=== PATIENT | female | born 1950 | race Two or more races ===

== ENCOUNTER 2024-01-17 04:56 | Emergency (ER) | payer MEDICARE, MEDICAID, SELFPAY ==
[2024-01-17 05:04] VITALS: BP 126/75; PULSE 85; RESP 19; TEMP 37.3; O2SAT 96; BMI 33.4
--- NOTE | 2024-01-17 05:10 | XR_ITS ---
Examination: PA lateral chest 2 views Technique: Upright PA lateral chest 2 views Exam date and time: January 17, 2024 0528 hrs. Indications: Onset chest pain today Comparison: February 16, 2014 Findings: Obscuration of detail of the posterior portion right hemidiaphragm on the lateral view consistent with pneumonia No significant cardiac enlargement Mild vascular congestion Mild kyphosis dorsal spine Impression: Early pneumonia posterior basal segment left lower lobe
--- NOTE | 2024-01-17 05:11 | PD.EDRME ---
Rapid Medical Screening Exam E Arrival date/time: 01/17/24 04:56 73-year-old female with past medical history of high blood pressure presents emergency department complaining of cough and pain to right upper back since this past Monday. Chief Complaint: General Adult/Misc Complain Vital signs: Vital Signs Temperature 99.1 F 01/17/24 05:04 Pulse Rate 85 01/17/24 05:04 Respiratory Rate 19 01/17/24 05:04 Blood Pressure 126/75 01/17/24 05:04 Pulse Oximetry (%) 96 01/17/24 05:04 Oxygen Delivery Method Room Air 01/17/24 05:04 Vital signs reviewed by provider: Yes
[2024-01-17 05:43] LABS: Collection Type, Urine Clean Catch
[2024-01-17 05:56] LABS: Bacteria,Urine 4+; Bilirubin,Urine 1+ (Negative); Blood,Urine 1+ (Negative); Budding Yeast,Urine Present; Color,Urine Drk-Yellow (Lt Yel-Yel); Glucose, Urine Negative (Negative); Ketones,Urine Trace (Negative); Leukocyte Esterase,Urine Positive (Negative); Nitrite,Urine Negative (Negative); Protein,Urine 2+ (Neg - Trace); RBC,Urine 28 /hpf (0-3); Squamous Epithelial Cell,Urine 6 /hpf (0-5); Urobilinogen,Urine 12 mg/dL (0.0-1.0); WBC,Urine 834 /hpf (0-5)
[2024-01-17 05:59] LABS: Basophils # (Auto) 0.1 Thou/mm3 (0.0-0.2); Basophils % (Auto) 0 % (0-2.5); Eosinophils # (Auto) 0.1 Thou/mm3 (0.0-0.5); Eosinophils % (Auto) 1 % (0-10); Hemoglobin 15.2 g/dL (12.0-16.0); Immature Granulocytes % (Auto) 1 % (0-0); Immature Granulocytes Auto 0.11 Thou/mm3 (0.00-0.00); Lymphocytes % (Auto) 17 % (10-50); Mean Corpuscular Hemoglobin 31.1 pg (25.0-35.0); Mean Corpuscular Volume 94 fL (80-100); Monocytes # (Auto) 1.9 Thou/mm3 (0.0-0.8); Monocytes % (Auto) 11 % (0-12); Neutrophils # (Auto) 12.7 Thou/mm3 (1.8-7.7); Neutrophils % (Auto) 71 % (37-80); Nucleated Red Blood Cell % 0 /100 WBC (0); Platelet Count 224 Thou/mm3 (140-440); RDW Standard Deviation 43.7 fL (36.4-46.3); Red Blood Count 4.88 Miln/mm3 (4.00-5.20); White Blood Count 17.9 Thou/mm3 (3.6-11.0)
[2024-01-17 06:07] LABS: Clarity,Urine Turbid (Clear/Hazy); Culture Indicated,Urine Yes
[2024-01-17 06:09] LABS: Alanine Aminotransferase 18 U/L (10-49); Albumin, Serum 4.8 gm/dL (3.4-4.8); Albumin/Globulin Ratio 1.2 (1.2-2.2); Alkaline Phosphatase 98 U/L (46-116); Anion Gap 8 (7-16); Aspartate Amino Transferase 22 U/L (0-34); BUN/Creatinine Ratio 12 Ratio (12-20); Bilirubin,Total 1.1 mg/dL (0.3-1.2); Blood Urea Nitrogen 13 mg/dL (9-23); Calcium 9.7 mg/dL (8.3-10.6); Calcium (Corrected) 9.7 mg/dL (8.5-10.1); Carbon Dioxide 23.5 mMol/L (20.0-31.0); Chloride 103 mMol/L (98-107); Creatinine (Component) 1.1 mg/dL (0.6-1.3); Estimated Creatinine Clearance 37.9 mL/min (>60); Glucose 163 mg/dL (74-106); Osmolality,Calculated 272 (275-295); Potassium 3.5 mMol/L (3.4-5.1); Sodium 134 mMol/L (136-145); Total Protein 8.8 gm/dL (5.7-8.2); Troponin I < 0.020 ng/mL (0.0-0.045); eGFR 53 See Note
--- NOTE | 2024-01-17 06:31 | PD.EDURI ---
Upper Respiratory Inf. RME/HPI General Chief Complaint: General Adult/Misc Complain Stated Complaint: Right flank pain X 3day Arrival date/time: 01/17/24 04:56 RME / HPI RME / HPI Narrative: 01/17/24 04:56 73-year-old female with past medical history of high blood pressure presents emergency department complaining of cough and pain to right upper back since this past Monday. DR. GRANT MAIN ED EVALUATION 73 year old female with history of hypertension, hypothyroidism, and seizures presents to the ED for complaint of cough, chest pain, and back pain beginning 3 days ago. Chest pain described as aching in sensation, located most to the right side of chest, rating as mild. Back pain described as aching in sensation that is located most to the right upper back and right flank area, rating as mild. Reportedly consulted with her PCP and was prescribed Promethazine which she has taken with little to no relief in cough. Denies fevers, chills, sweats, abdominal pain, n/v/d, or urinary symptoms. Related Data Home Medications ?Medication ?Instructions ?Recorded ?Confirmed Phenytoin Sodium Extended * 2 cap PO BID 3 days ##0 06/12/07 (DILANTIN *) atenolol 25 mg tablet 50 mg PO DAILY ##0 06/12/07 omeprazole 40 mg capsule,delayed 40 mg PO QDAY ##0 01/16/14 release (Prilosec) pravastatin 40 mg tablet 40 mg PO HS #0 tabs 01/16/14 (Pravachol) Losartan Potassium * (COZAAR *) 50 mg PO QDAY #0 tabs 06/23/14 beclomethasone dipropionate 80 1 puff inhalation BID #0 puffs 06/23/14 mcg/actuation aerosol inhaler (Qvar) Previous Rx's ?Medication ?Instructions ?Recorded levofloxacin 500 mg tablet 500 mg PO QDAY 7 days #7 tabs 01/17/24 Allergies Allergy/AdvReac Type Severity Reaction Status Date / Time iodine Allergy Severe RASH, Verified 01/17/24 05:00 BURNING, SWELLING codeine AdvReac Intermediate NAUSEA, Verified 01/17/24 05:00 VOMITING, HEAD PAIN Contrast Media Allergy Severe BURNING, Uncoded 01/17/24 05:00 RASH, SWELLING Review of Systems Review of Systems Narrative Review of Systems: GEN: No fever, no chills, no weight loss EYES: No discharge, no visual changes, no pain HEENT: No ear pain, no congestion, no sore throat PULM: No shortness of breath, +cough CV: +chest pain, no dyspnea on exertion, no palpitations GI: No nausea, no vomiting, no diarrhea, no pain, no constipation : No frequency, no urgency and no dysuria MUSC/SKEL No joint pain, + back pain SKIN: No rash PSYCH: No hallucinations, no depression HEME/LYMPH: No easy bleeding or bruising tendencies NEURO: No weakness, no headache Past Medical History Social History SMOKING STATUS: Never smoker ED Exam Narrative Physical exam: GENERAL APPEARANCE: Well hydrated, well nourished, in no acute distress. VITALS: All vitals were reviewed and the pulse ox is 96% on room air which is normal according to my interpretation. HEENT: Normocephalic, atramatic, EOMI, EACs are patent. There is no bulge or retraction. Throat without erythema or exudate. Moist oromucosa. No jaundice NECK: Supple, no JVD or bruits. CARDIOVASCULAR: Heart regular without S3-S4 or murmur. No rubs or gallops. LUNGS/CHEST: Crackles bilaterally. No rales, rhonchi, or wheezing. ABDOMEN: Soft, nontender, with normal bowel sounds. No pulsatile masses. No rebound, rigidity, or guarding. No incarcerated hernia. Normal inspection and palpation. EXTREMITIES: Normal inspection and palpation. No edema, clubbing, or cyanosis. Intact CSM SKIN: Warm and dry without rashes. Normal inspection. MUSCULOSKELETAL: Normal inspection. No gross deformity, full ROM all extremities NEURO: Alert and oriented x3. Cranial nerves II through XII grossly intact. There are no other motor or sensory deficits noted. PSYCHIATRIC: Normal mood and affect. No psychosis. Course Quality Measures none Orders Category Date Time Status Bedside COVID-19 Antigen Test NOW Care 01/17/24 05:10 Active Bedside Influenza A&B Antigen Test NOW Care 01/17/24 05:10 Completed EKG (ED ONLY) *Do not use* NOW Care 01/17/24 05:10 Completed EKG (ED Only) Stat Exams 01/17/24 05:10 Ordered XR chest 2V Stat Exams 01/17/24 05:10 Taken CBC Stat Lab 01/17/24 05:41 Completed Comprehensive Metabolic Panel Stat Lab 01/17/24 05:41 Completed Troponin I Stat Lab 01/17/24 05:41 Completed Urinalysis, C/S if Indicated Stat Lab 01/17/24 05:37 Completed Urine Culture Stat Lab 01/17/24 05:37 Received Vital Signs Vital signs: Vital Signs Temperature 99.1 F 01/17/24 05:04 Pulse Rate 85 01/17/24 05:04 Respiratory Rate 19 01/17/24 05:04 Blood Pressure 126/75 01/17/24 05:04 Pulse Oximetry (%) 96 01/17/24 05:04 Oxygen Delivery Method Room Air 01/17/24 05:04 Pulse ox is 96% on room air which is adequate. Upper Respiratory Infection MDM Narrative MDM Narrative:: Sol Neves am scribing for and in the presence of Dr. Grant. WBC count is 18,000. CMP is negative. UA is positive for UTI. Troponin is negative. Chest x-ray interpreted by me: Left lower lobe infiltrate. Heart normal. Mediastinum normal. Normal bones. Twelve-lead EKG that was done to 5:12 AM and interpreted by me as follow. Normal sinus rhythm. Heart rate of 95. Normal axis. No ST elevation or depression. No PVC. No STEMI. Regular rate and rhythm. Patient has no surgical abdomen. She has no tenderness rebound or guarding. And there is no flank tenderness either. Patient data External records reviewed:: None (NO previous ED records for review ) Clinical information provided by:: patient and spouse (- adds to hpi) Social determinants that could affect healthcare access:: none Patient has the following chronic illnesses:: hypertension, hypothyroidism, and seizures How is presenting disease/condition affected by chronic disease/condition?: uneffected by Evaluation data The following diagnostics were reviewed and interpreted by me:: lab results, radiology exam(s) and EKG tracing(s) Lab and/or radiology exams considered but not ordered:: None Interpretation Summary: As noted above Medications / Prescriptions Medications or Prescriptions considered but not ordered:: None Medication administrations:: None Consultations Consultation(s) initiated? (list below): No Diagnosis Upper Respiratory Differential Diagnosis: upper respiratory infection, viral infection, bronchitis and other (Pneumonia ) Most likely diagnosis given after review of the tests above:: Pneumonia UTI Admission Indicated Admission indicated?: not indicated Admission Request Was there a request for admission?: No Disposition Plan Disposition Plan: Discharge Discharge Attestation Discharge Attestation: The patient and all family members were given an opportunity to ask questions and understood the discharge instructions. Discharge instructions specifically effects, indications for sooner follow up or return to the emergency department, and the expected course of current diagnosis. Patient condition: Stable Discharge Plan Plan Patient Disposition: HOME (Self Care) Disposition Comment: Stable for [place] home Prescriptions/Referrals Prescriptions/Med Rec: New levofloxacin 500 mg tablet 500 mg PO QDAY 7 Days Qty: 7 0RF No Action atenolol 25 MG tablet 50 mg PO DAILY Qty: 0 Phenytoin Sodium Extended * (DILANTIN *) 100 MG capsule 2 cap PO BID 3 Days Qty: 0 Patient Comments: FOR SEIZURE CONTROL pravastatin [Pravachol] 40 MG tablet 40 mg PO HS Qty: 0 omeprazole [Prilosec] 40 MG capsule,delayed release(DR/EC) 40 mg PO QDAY Qty: 0 Patient Comments: TO SUPPRESS GASTRIC SECRETIONS beclomethasone dipropionate [Qvar] 7.3 GM aerosol 1 puff Inhalation BID Qty: 0 Losartan Potassium * (COZAAR *) 50 MG tablet 50 mg PO QDAY Qty: 0 Referrals: Breana Cates [Primary Care Provider] - In 1 week Problem List Clinical Impression: Pneumonia, Urinary tract infection Patient/Caregiver Discharge Instructions Education Materials: Urinary Tract Infections in Women, ED Pneumonia (Adult) Additional Instructions: Antibiotic for pneumonia and UTI. See your doctor for recheck and further care in 3 days. Return to the nearest emergency department if any problem especially high fever or if condition worsens. Print Language: Uzbek Stand Alone Forms: Eva Award Info., Patient Portal Info Letter
[2024-01-17 07:13] VITALS: BP 125/67; PULSE 87; RESP 18; TEMP 37.1; O2SAT 99
== END 2024-01-17 07:13 | disposition home or self-care (01) ==
PROVIDERS: Emergency Provider Emergency Medicine; PCP Physician Assistant
DX: J18.9 Pneumonia, unspecified organism (principal); N39.0 Urinary tract infection, site not specified; I10 Essential (primary) hypertension
CPT/HCPCS: 36415; 71046; 80053; 81001; 84484; 85025; 87077; 87086; 87186; 87400; 87811; 93005; 99283

== ENCOUNTER → 2024-01-29 | Outpatient (CLI) | payer MEDICARE, MEDICAID, SELFPAY ==
[2024-01-29 11:18] LABS: Basophils % (Auto) 0 % (0-2.5); Eosinophils # (Auto) 0.1 Thou/mm3 (0.0-0.5); Eosinophils % (Auto) 2 % (0-10); Hematocrit 40.8 % (36.0-46.0); Hemoglobin 13.6 g/dL (12.0-16.0); Immature Granulocytes % (Auto) 1 % (0-0); Immature Granulocytes Auto 0.05 Thou/mm3 (0.00-0.00); Lymphocytes # (Auto) 2.7 Thou/mm3 (1.0-4.8); Lymphocytes % (Auto) 31 % (10-50); Mean Corpuscular HGB Conc 33.3 g/dl (31.0-37.0); Mean Corpuscular Hemoglobin 30.2 pg (25.0-35.0); Mean Corpuscular Volume 91 fL (80-100); Monocytes # (Auto) 0.6 Thou/mm3 (0.0-0.8); Monocytes % (Auto) 7 % (0-12); Neutrophils # (Auto) 5.1 Thou/mm3 (1.8-7.7); Neutrophils % (Auto) 59 % (37-80); Nucleated Red Blood Cell % 0 /100 WBC (0); Platelet Count 421 Thou/mm3 (140-440); RDW Standard Deviation 41.2 fL (36.4-46.3); White Blood Count 8.6 Thou/mm3 (3.6-11.0)
[2024-01-29 11:38] LABS: Alanine Aminotransferase 41 U/L (10-49); Albumin, Serum 4.2 gm/dL (3.4-4.8); Albumin/Globulin Ratio 1.1 (1.2-2.2); Alkaline Phosphatase 118 U/L (46-116); Anion Gap 8 (7-16); Aspartate Amino Transferase 40 U/L (0-34); BUN/Creatinine Ratio 11 Ratio (12-20); Bilirubin,Total 0.6 mg/dL (0.3-1.2); Blood Urea Nitrogen 9 mg/dL (9-23); Calcium 9.5 mg/dL (8.3-10.6); Calcium (Corrected) 9.5 mg/dL (8.5-10.1); Chloride 106 mMol/L (98-107); Creatinine (Component) 0.8 mg/dL (0.6-1.3); Globulin 3.8 gm/dL (2.3-3.5); Glucose 120 mg/dL (74-106); Osmolality,Calculated 275 (275-295); Phenytoin (Dilantin) 4.7 mcg/mL; Potassium 3.7 mMol/L (3.4-5.1); Sodium 138 mMol/L (136-145); eGFR > 60 See Note
[2024-01-29 11:47] LABS: Glucose Estimated Average 120 mg/dL (80-131); Hemoglobin A1C 5.8 % Hgb (4.8-6.0)
== END | disposition home or self-care (01) ==
LOC: COPL 10:40
PROVIDERS: PCP Physician Assistant; Referring Provider Psychiatry & Neurology Neurology; Visit Provider Psychiatry & Neurology Neurology
DX: E78.5 Hyperlipidemia, unspecified (principal); I10 Essential (primary) hypertension
CPT/HCPCS: 36415; 80053; 80185; 83036; 84443; 85025

== ENCOUNTER 2024-02-04 15:22 | Emergency (ER) | payer MEDICARE, MEDICAID, SELFPAY ==
[2024-02-04 15:23] VITALS: BMI 38.3
[2024-02-04 15:40] VITALS: BP 153/63; PULSE 79; RESP 17; TEMP 36.8; O2SAT 95
--- NOTE | 2024-02-04 15:45 | XR_ITS ---
Examination: CT cervical spine without contrast 2-D sagittal reconstructions 2-D coronal reconstructions 3-D reconstructions. Exam date and time:February 04, 2024 1551 hrs. Indications: Patient fell 3 days ago with injury neck, neck pain CTDI:vol (mGy) 8.92 DLP: (mGycm) 181 Technique: Multiple 2 mm axial sections of the cervical spine have been obtained. The coronal and sagittal reconstructions have been obtained. 3-D reconstructions have been obtained. Low dose protocols were performed. One or more of the following dose reduction techniques were used; automated exposure control, adjustment of the mA and/or KV according to patient size, use of iterative reconstruction technique. Findings: Axial sections demonstrate intact base of the skull. C1 exhibit satisfactory relationship to the odontoid. No acute cervical vertebral body fracture seen. Alignment posterior spinous processes satisfactory. Impression: No acute cervical fracture.
--- NOTE | 2024-02-04 15:45 | XR_ITS ---
Examination: CT brain head without contrast. 2-D sagittal coronal reconstructions Date and time of exam:February 04, 2024 1551 hrs. Indications: Patient fell 3 days ago with injury to the head, head pain and neck pain CTDI: vol (mGy):51.5 DLP: (mGycm):1063 Technique: Multiple CT axial sections of the brain have been obtained, 5 mm slice thickness. Contrast has not been administered. 2-D sagittal, coronal reconstructions have been obtained Low dose protocols were performed. One or more of the following dose reduction techniques were used; automated exposure control, adjustment of the mA and/or KV according to patient size, use of iterative reconstruction technique. Findings: No significant ventricular enlargement. Intra-axial or extra-axial hemorrhage density is not seen. No mass effect or midline shift Basal cisterns are not remarkable. Fourth ventricle is midline. Cranial vault intact. Multiple cerebral calcifications Impression: Negative for acute hemorrhage, mass effect or midline shift
--- NOTE | 2024-02-04 15:46 | PD.EDRME ---
Rapid Medical Screening Exam RME Arrival date/time: 02/04/24 15:22 73-year-old female presented to the emergency department complaints of neck pain status post fall 4 days ago. I have greeted and performed a focused initial assessment of this patient. Initial appropriate labs ordered at this time. A comprehensive ED assessment and evaluation of the patient and analysis of all test and completion of medical decision making process will be conducted by additional ED provider. Chief Complaint: Neck Pain/Injury Time Seen by Provider: 02/04/24 15:45 Vital signs: Vital Signs Temperature 98.3 F 02/04/24 15:40 Pulse Rate 79 02/04/24 15:40 Respiratory Rate 17 02/04/24 15:40 Blood Pressure 153/63 H 02/04/24 15:40 Pulse Oximetry (%) 95 02/04/24 15:40 Oxygen Delivery Method Room Air 02/04/24 15:40
[2024-02-04] MEDS: IBUPROFEN TAB 600 MG TABLET PO (16:29)
[2024-02-04] MEDS: CYCLObenzaPRINE 5 MG TABLET PO (16:29)
--- NOTE | 2024-02-04 16:55 | PRELIM_ITS ---
CT scan of the cervical spine without intravenous contrast (axial sections with sagittal and coronal reformats) February 04, 2024 1551 hours Clinical History: fall 3 days ago, neck pain No prior study i s available for comparison. Findings:There is no fracture or traumatic subluxation. Mild degenerative changes are noted in the form of multilevel marginal osteophytes, decreased disc spaces and facet ar thropathy, most marked at the C5-C6 and C6-C7 levels causing mild spinal canal narrowing and neural f oraminal narrowing. The prevertebral soft tissues are unremarkable.There is mild scarring at the lung apices bilaterally.Impression:No evidence of fracture or traumatic subluxation.Degenerative changes are described above. Report Electronically Signed By: Anayeli Velez 02/04/2024 4:55:05 PM [EST]
--- NOTE | 2024-02-04 17:07 | PRELIM_ITS ---
CT scan of the head without intravenous contrast (axial sections with sagittal and coronal reformats) February 04, 2024 1551 hoursClinical History: fall 3 days ago, neck painNo prior study is available for comparison. Findings:There is no evidence of intracranial hemorrhage, mass effect or midline shif t. There are periventricular white matter hypodensities, compatible with chronic small vessel ischemi a. There is mild volume loss. Basal ganglia calcifications are present bilaterally. The calvarium is intact. The mastoid air cells and the visualized paranasal sinuses are clear.There are focal calcifi cations in the bilateral convexity.Impression:No evidence of intracranial hemorrhage, midline shift o r calvarial fracture. Periventricular chronic small vessel ischemia and volume loss.Focal calcificati ons in the bilateral convexity, likely representing old calcified granulomas. Report Electronically S igned By: Anayeli Velez 02/04/2024 5:07:23 PM [EST]
--- NOTE | 2024-02-04 19:00 | EDNOTE_ITS ---
<Statement entered by Jazmin Mercado MD - 02/05/24 22:06> As co-signing physician, I was present and available for consult prn. I concur with the plan and care as documented by the midlevel provider. ED Neck Injury Pain RME/HPI General Chief Complaint: Neck Pain/Injury Stated Complaint: LEFT NECK PAIN X2WK Time Seen by Provider: 02/04/24 15:45 Source: patient Arrival date/time: 02/04/24 15:22 73-year-old female with past medical history of high blood pressure presents emergency department complaining of neck pain that radiates down to both shoulders after suffering a fall 4 days ago with no LOC. Patient denies any fever, chills, sore throat, ear pain, dizziness, cough, shortness of breath, or any other associated symptom. Mode of arrival: ambulatory Limitations: no limitations RME / HPI RME / HPI Narrative: 02/04/24 15:22 73-year-old female presented to the emergency department complaints of neck pain status post fall 4 days ago. I have greeted and performed a focused initial assessment of this patient. Initial appropriate labs ordered at this time. A comprehensive ED assessment and evaluation of the patient and analysis of all test and completion of medical decision making process will be conducted by additional ED provider. Related Data Home Medications ?Medication ?Instructions ?Recorded ?Confirmed Phenytoin Sodium Extended * 2 cap PO BID 3 days ##0 06/12/07 (DILANTIN *) atenolol 25 mg tablet 50 mg PO DAILY ##0 06/12/07 omeprazole 40 mg capsule,delayed 40 mg PO QDAY ##0 01/16/14 release (Prilosec) pravastatin 40 mg tablet 40 mg PO HS #0 tabs 01/16/14 (Pravachol) Losartan Potassium * (COZAAR *) 50 mg PO QDAY #0 tabs 06/23/14 beclomethasone dipropionate 80 1 puff inhalation BID #0 puffs 06/23/14 mcg/actuation aerosol inhaler (Qvar) Previous Rx's ?Medication ?Instructions ?Recorded ibuprofen 600 mg tablet 600 mg PO Q8H PRN pain #20 tabs 02/04/24 Allergies Allergy/AdvReac Type Severity Reaction Status Date / Time iodine Allergy Severe RASH, Verified 02/04/24 15:26 BURNING, SWELLING codeine AdvReac Intermediate NAUSEA, Verified 02/04/24 15:26 VOMITING, HEAD PAIN Contrast Media Allergy Severe BURNING, Uncoded 02/04/24 15:26 RASH, SWELLING Review of Systems Review of Systems Systems Reviewed: All systems reviewed, normal except as documented Constitutional Constitutional: Reports system reviewed and no additional complaints, except as documented, Denies body ache(s), Denies chills and Denies fever(s) Eyes Eyes: Reports system reviewed and no additional complaints, except as documented and Denies change in vision ENT Ears, Nose, Mouth, and Throat: Reports system reviewed and no additional complaints, except as documented, Denies disequilibrium, Denies dizziness, Reports neck pain, Denies sore throat and Denies vertigo Cardiovascular Cardiovascular: Reports system reviewed and no additional complaints, except as documented, Denies chest pain and Denies dyspnea Respiratory Respiratory: Reports system reviewed and no additional complaints, except as doc umented, Denies chest congestion, Denies cough and Denies dyspnea Gastrointestinal Gastrointestinal: Reports system reviewed and no additional complaints, except as documented, Denies abdominal pain, Denies nausea and Denies vomiting Musculoskeletal Musculoskeletal: Reports system reviewed and no additional complaints, except as documented, Denies abnormal gait, Denies arthralgias and Reports neck pain Integumentary/Breasts Skin/Breast: Reports system reviewed and no additional complaints, except as documented, Denies erythema, Denies rash and Denies wounds Neurologic Neurologic: Reports system reviewed and no additional complaints, except as documented, Denies abnormal gait, Denies disequilibrium, Denies dizziness and Denies vertigo Past Medical History Past Medical History NEUROLOGIC: Positive Seizures CARDIAC: Positive Hypertension; Negative Congestive Heart Failure RESPIRATORY: Negative Chronic Obstructive Pulmonary Disease (COPD) GENITOURINARY: Negative Renal Disease ENDOCRINE: Positive Hypothyroidism; Negative Diabetes Mellitus Type 1 or Diabetes Mellitus Type 2 Social History SMOKING STATUS: Never smoker ED Exam General Limitations: Present no limitations General appearance: Present alert and in no apparent distress Head Head exam: Present atraumatic Eye Eye exam: Present normal appearance, PERRL and EOMI ENT ENT exam: Present normal exam, normal oropharynx and mucous membranes moist Neck Neck exam: Present normal inspection, full ROM and trachea midline Chest Chest inspection: Present normal inspection and symmetric chest wall rise Respiratory Respiratory exam: Present normal lung sounds bilaterally Cardiovascular Cardiovascular exam: Present regular rate, normal rhythm and normal heart sounds Abdominal Exam Abdominal exam: Present soft and normal bowel sounds Extremities Exam Extremities exam: Present normal inspection and full ROM Back Exam Back exam: Present normal inspection and full ROM Neurological Exam Neurological exam: Present alert, oriented X3 and CN II-XII intact Psychiatric Psychiatric exam: Present normal affect and normal mood Skin Skin exam: Present warm, dry, intact and normal color Course Quality Measures none Orders Category Date Time Status CT cervical spine wo con Stat Exams 02/04/24 15:[address] head/brain wo con Stat Exams 02/04/24 15:45 Completed CYCLObenzaPRINE [Flexeril] Med 02/04/24 15:45 Discontinued 5 mg PO X1 ONE Ibuprofen Tab [Motrin Tab] Med 02/04/24 15:45 Discontinued 600 mg PO X1 ONE Vital Signs Vital signs: Vital Signs Temperature 98.3 F 02/04/24 15:40 Pulse Rate 79 02/04/24 15:40 Respiratory Rate 17 02/04/24 15:40 Blood Pressure 153/63 H 02/04/24 15:40 Pulse Oximetry (%) 95 02/04/24 15:40 Oxygen Delivery Method Room Air 02/04/24 15:40 95% room air within normal limits Neck Pain MDM Narrative MDM Narrative:: 73-year-old female with past medical history of high blood pressure presents emergency department complaining of neck pain that radiates down to both shoulders after suffering a fall 4 days ago with no LOC. Patient denies any fever, chills, sore throat, ear pain, dizziness, cough, shortness of breath, or any other associated symptom. CT head and neck were unremarkable. Patient reports significant improvement in pain after pain medication. Patient GCS 15 with steady gait and supple full active range of motion to neck. Patient discharged and instructed to follow-up with primary care provider and request physical therapy or MRI of neck if symptoms persist. Patient data External records reviewed:: [facility] previous records Clinical information provided by:: patient and family Social determinants that could affect healthcare access:: none Patient has the following chronic illnesses:: See chart How is presenting disease/condition affected by chronic disease/condition?: uneffected by Evaluation data The following diagnostics were reviewed and interpreted by me:: radiology exam(s) Lab and/or radiology exams considered but not ordered:: Ordered Interpretation Summary: Interpreted by me Medications / Prescriptions Medications or Prescriptions considered but not ordered:: Ordered Medication administrations:: Medication Administration History Discontinued Medications Cyclobenzaprine HCl (Cyclobenzaprine 5 Mg Tablet) 5 mg PO X1 ONE Stop: 02/04/24 15:46 Last Admin: 02/04/24 16:29 Dose: 5 mg Documented By: GLENN Ibuprofen (Ibuprofen Tab 600 Mg Tablet) 600 mg PO X1 ONE Stop: 02/04/24 15:46 Last Admin: 02/04/24 16:29 Dose: 600 mg Documented By: GLENN Given Consultations Consultation(s) initiated? (list below): No Diagnosis Neck Differential Diagnosis: disc disorder of cervical region, closed buchanan bluxation of cervical spine, fracture of cervical spine without lesion of spinal cord, cervical radiculopathy, vertebral artery dissection, cervical spondylosis and strain of neck muscle Most likely diagnosis given after review of the tests above:: Strain of neck muscle Admission Indicated Admission indicated?: not indicated Admission Request Was there a request for admission?: No Disposition Plan Disposition Plan: Discharge Discharge Attestation Discharge Attestation: The patient and all family members were given an opportunity to ask questions an d understood the discharge instructions. Discharge instructions specifically effects, indications for sooner follow up or return to the emergency department, and the expected course of current diagnosis. Patient condition: Stable Discharge Plan Plan Patient Disposition: HOME (Self Care) Disposition Comment: Stable Prescriptions/Referrals Prescriptions/Med Rec: New ibuprofen 600 mg tablet 600 mg PO Q8H PRN (Reason: pain) Qty: 20 0RF No Action atenolol 25 MG tablet 50 mg PO DAILY Qty: 0 Phenytoin Sodium Extended * (DILANTIN *) 100 MG capsule 2 cap PO BID 3 Days Qty: 0 Patient Comments: FOR SEIZURE CONTROL pravastatin [Pravachol] 40 MG tablet 40 mg PO HS Qty: 0 omeprazole [Prilosec] 40 MG capsule,delayed release(DR/EC) 40 mg PO QDAY Qty: 0 Patient Comments: TO SUPPRESS GASTRIC SECRETIONS beclomethasone dipropionate [Qvar] 7.3 GM aerosol 1 puff Inhalation BID Qty: 0 Losartan Potassium * (COZAAR *) 50 MG tablet 50 mg PO QDAY Qty: 0 Referrals: No Primary/Family,Physician [Primary Care Provider] - In 1 week Problem List Clinical Impression: Strain of neck muscle Patient/Caregiver Discharge Instructions Discharge Activity: activity as tolerated Education Materials: ED Neck Sprain or Strain Additional Instructions: Take medication as prescribed. Follow-up with primary care provider in 24 to 40 hours. Return to emergency department for any worsening symptoms or as needed. Print Language: Armenian Stand Alone Forms: Eva Award Info., Patient Portal Info Letter PA/[employer]BI[employer]IM INST[employer]ER Supervising Physician PA/[employer] INST[employer]ER Supervising Physician: Dr. Mercado
== END 2024-02-04 19:21 | disposition home or self-care (01) ==
PROVIDERS: Emergency Provider Emergency Medicine
DX: S16.1XXA Strain of muscle, fascia and tendon at neck level, initial encounter (principal); S09.90XA Unspecified injury of head, initial encounter; W19.XXXA Unspecified fall, initial encounter
CPT/HCPCS: 70450; 72125; 99284; A9270

== ENCOUNTER → 2024-04-10 | Outpatient (CLI) | payer MEDICARE, MEDICAID, SELFPAY ==
[2024-04-10 11:21] LABS: Basophils % (Auto) 0 % (0-2.5); Eosinophils # (Auto) 0.2 Thou/mm3 (0.0-0.5); Eosinophils % (Auto) 2 % (0-10); Hematocrit 41.9 % (36.0-46.0); Hemoglobin 13.7 g/dL (12.0-16.0); Immature Granulocytes % (Auto) 0 % (0-0); Immature Granulocytes Auto 0.03 Thou/mm3 (0.00-0.00); Lymphocytes # (Auto) 3.4 Thou/mm3 (1.0-4.8); Lymphocytes % (Auto) 44 % (10-50); Mean Corpuscular HGB Conc 32.7 g/dl (31.0-37.0); Mean Corpuscular Hemoglobin 30.9 pg (25.0-35.0); Mean Corpuscular Volume 95 fL (80-100); Monocytes # (Auto) 0.5 Thou/mm3 (0.0-0.8); Monocytes % (Auto) 6 % (0-12); Neutrophils # (Auto) 3.7 Thou/mm3 (1.8-7.7); Neutrophils % (Auto) 48 % (37-80); Nucleated Red Blood Cell % 0 /100 WBC (0); Platelet Count 205 Thou/mm3 (140-440); RDW Standard Deviation 48.9 fL (36.4-46.3); Red Blood Count 4.43 Miln/mm3 (4.00-5.20); White Blood Count 7.8 Thou/mm3 (3.6-11.0)
[2024-04-10 11:34] LABS: Glucose Estimated Average 111 mg/dL (80-131); Hemoglobin A1C 5.5 % Hgb (4.8-6.0)
[2024-04-10 11:38] LABS: Alanine Aminotransferase 21 U/L (10-49); Albumin, Serum 4.4 gm/dL (3.4-4.8); Albumin/Globulin Ratio 1.3 (1.2-2.2); Alkaline Phosphatase 89 U/L (46-116); Anion Gap 9 (7-16); Aspartate Amino Transferase 26 U/L (0-34); BUN/Creatinine Ratio 19 Ratio (12-20); Bilirubin,Total 0.5 mg/dL (0.3-1.2); Blood Urea Nitrogen 13 mg/dL (9-23); Calcium 9.1 mg/dL (8.3-10.6); Calcium (Corrected) 9.1 mg/dL (8.5-10.1); Carbon Dioxide 24.9 mMol/L (20.0-31.0); Cardiac Risk Estimate 3.6 RATIO (3.7-5.6); Chloride 108 mMol/L (98-107); Cholesterol 228 mg/dL (132-200); Creatinine (Component) 0.7 mg/dL (0.6-1.3); Globulin 3.4 gm/dL (2.3-3.5); Glucose 100 mg/dL (74-106); HDL Cholesterol 63 mg/dL (40-60); LDL Cholesterol,Calculated 132 mg/dL (0-130); Osmolality,Calculated 283 (275-295); Potassium 4.2 mMol/L (3.4-5.1); Sodium 142 mMol/L (136-145); Total Protein 7.8 gm/dL (5.7-8.2); Triglycerides 166 mg/dL (30-150); eGFR > 60 See Note
[2024-04-10 11:43] LABS: Collection Type, Urine Clean Catch
[2024-04-10 12:16] LABS: Bilirubin,Urine Negative (Negative); Blood,Urine Negative (Negative); Clarity,Urine Clear (Clear/Hazy); Color,Urine Lt-Yellow (Lt Yel-Yel); Glucose, Urine Negative (Negative); Ketones,Urine Negative (Negative); Leukocyte Esterase,Urine Negative (Negative); Nitrite,Urine Positive (Negative); Protein,Urine Negative (Neg - Trace); RBC,Urine 1 /hpf (0-3); Specific Gravity,Urine 1.016 (1.001-1.035); Squamous Epithelial Cell,Urine 1 /hpf (0-5); Urobilinogen,Urine Negative mg/dL (0.0-1.0); WBC,Urine 1 /hpf (0-5)
[2024-04-10 12:21] LABS: Culture Indicated,Urine Yes
[2024-04-10 12:22] LABS: Creatinine MALB Rnd Ur 61 mg/dL (30-125); Microalbumin Creat Ratio 5 mg/gCrea (<30); Microalbumin, Random Urine 3 mg/L (0-300)
== END | disposition home or self-care (01) ==
LOC: COPL 10:13
PROVIDERS: PCP Physician Assistant; Referring Provider Physician Assistant; Visit Provider Physician Assistant
DX: I10 Essential (primary) hypertension (principal); E78.5 Hyperlipidemia, unspecified; R73.9 Hyperglycemia, unspecified; R53.83 Other fatigue
CPT/HCPCS: 36415; 80053; 80061; 81001; 82043; 82570; 83036; 85025; 87086

== ENCOUNTER → 2024-04-15 | Outpatient (CLI) | payer MEDICARE, MEDICAID, SELFPAY ==
[2024-04-15 12:31] LABS: OBS Card Expiration Date 2026-09; OBS Card Lot # 23001; OBS Performed By LAB; OBS QC OK? Yes
[2024-04-15 17:52] LABS: OBS Developer Lot # 23003; Occult Blood, Stool Negative (Negative); Occult Blood, Stool #2 Negative (Negative); Occult Blood, Stool #3 Negative (Negative)
== END | disposition home or self-care (01) ==
LOC: SLDO 12:20
PROVIDERS: PCP Physician Assistant; Referring Provider Physician Assistant; Visit Provider Physician Assistant
DX: I10 Essential (primary) hypertension (principal)
CPT/HCPCS: 82270

== ENCOUNTER 2024-09-22 00:13 | Emergency (ER) | payer MEDICARE, SELFPAY ==
[2024-09-22 01:01] VITALS: BP 174/84; PULSE 66; RESP 20; TEMP 36.7; O2SAT 95
--- NOTE | 2024-09-22 01:15 | PD.EDDIZZY ---
ED Dizzyness RME/HPI General Chief Complaint: Dizziness Stated Complaint: DIZZY Time Seen by Provider: 09/22/24 01:24 Arrival date/time: 09/22/24 00:13 RME / HPI RME / HPI Narrative: This section includes all my notes and documentations, including HPI, PE, and ED course. Yemi Garcia MD HPI: 74 y/o female with Hx of Seizure and HTN presents with dizziness and chest discomfort x 2 hours. Reports loss of balance when walking and feeling as if she is inebriated. Denies history of [place], but her endorses history of panic attacks. Patient reports allergy to Iodine and Codeine. No other complaints. ROS: All negative except as documented in HPI. Physical Exam: General: Alert and oriented. No acute distress. Eyes: Conjunctivae and lids clear. EOMI. PERRL. ENT: No nasal congestion. Pharynx normal. Tympanic membrane normal bilaterally. Neck: Supple. No carotid bruit. No JVD. Heart: RRR. Lungs: No respiratory distress. Good air movement. No rhonchi, wheezing, rales. Chest: No tenderness. Abdomen: Soft and nontender. Normal bowel sounds. No distension. No rebound or guarding. Legs: No clubbing, cyanosis, edema. Skin: Warm and dry. Neuro: Alert and oriented X 3. Cranial Nerves II-XII grossly intact. No peripheral motor deficits. I reviewed all diagnostic tests: My interpretation of the EKG is: Sinus rhythm (64 bpm) with nonspecific ST-T changes. My review of the Head/Brain CT report is: NAD. My review of the Chest/Abdomen/Pelvis CT report is: NAD. Blood tests and urine tests unremarkable. Covid/Influenza: Negative. At this point, diagnoses include: Vertigo. Treatment here included: Xanax 0.25 mg, Zofran 4 mg, Transderm-Scop Patch 1 mg. Significant improvement noted. Recommended outpatient care. Based on my best medical judgment, made decision no further evaluation or treatment indicated at this time. Patient understands and agrees to the discharge instructions customized and printed, see below. Discharge instructions from Dr. Garcia: ? After extensive evaluation, there is no life-threatening condition.? Such as stroke or brain tumor or heart attack. -- Your symptoms are due to vertigo.? -- Use scopolamine patch as needed. --Xanax for anxiety. -- And Zofran for nausea/vomiting.? And increase oral fluid to prevent dehydration.? Maintain clear urine.? If dark or yellow, increase oral fluid. -- And do everything very slowly.? Including moving your head.? And when you sit up or stand up, wait a minute before you progress.? -- See your private doctor on 09/23/2024 for recheck and further care. Ask to review all test results and official radiology reports, to make sure you receive all necessary follow-ups and monitoring. If needed, ask to help you get more care not available here in the ER.? Such as MRI imaging of your brain, physical therapy, table tilt test, and referrals to see specialists (such as neurologist and ENT specialist). To make sure there is no serious underlying heart condition, ask to help you get more tests for your heart that cannot be done here in the ER. Such as Holter Monitor (cardiac monitoring at home from a day to even a month), heart stress test (on treadmill or with medication), echocardiogram (imaging of your heart structures), heart catherization (checking for blockages in your heart arteries), and a referral to see a Vacuum System Tester. -- Seek immediate medical care with worsening or with any concerns. Yemi Garcia MD Related Data Home Medications ?Medication ?Instructions ?Recorded ?Confirmed Phenytoin Sodium Extended * 2 cap PO BID 3 days ##0 06/12/07 (DILANTIN *) atenolol 25 mg tablet 50 mg PO DAILY ##0 06/12/07 omeprazole 40 mg capsule,delayed 40 mg PO QDAY ##0 01/16/14 release (Prilosec) pravastatin 40 mg tablet 40 mg PO HS #0 tabs 01/16/14 (Pravachol) Losartan Potassium * (COZAAR *) 50 mg PO QDAY #0 tabs 06/23/14 beclomethasone dipropionate 80 1 puff inhalation BID #0 puffs 06/23/14 mcg/actuation aerosol inhaler (Qvar) Previous Rx's ?Medication ?Instructions ?Recorded ibuprofen 600 mg tablet 600 mg PO Q8H PRN pain #20 tabs 02/04/24 alprazolam 0.25 mg tablet (Xanax) 0.25 mg PO BID PRN anxiety #20 tabs 09/22/24 ondansetron 4 mg disintegrating 4 mg PO TID PRN nausea and 09/22/24 tablet vomiting 30 days #10 tabs scopolamine base 1 mg over 3 days 1 mg topical .q72 hours PRN 09/22/24 transdermal patch (Transderm-Scop) dizziness or vertigo #4 ea Allergies Allergy/AdvReac Type Severity Reaction Status Date / Time iodine Allergy Severe RASH, Verified 02/04/24 15:26 BURNING, SWELLING codeine AdvReac Intermediate NAUSEA, Verified 02/04/24 15:26 VOMITING, HEAD PAIN Contrast Media Allergy Severe BURNING, Uncoded 02/04/24 15:26 RASH, SWELLING Review of Systems Review of Systems Systems Reviewed: All systems reviewed, normal except as documented Past Medical History Past Medical History NEUROLOGIC: Positive Seizures CARDIAC: Positive Hypertension ENDOCRINE: Positive Hypothyroidism ED Exam Narrative Physical exam: Refer to HPI Course Quality Measures none Orders Category Date Time Status Bedside COVID-19 Antigen Test NOW Care 09/22/24 01:37 Completed Bedside Influenza A&B Antigen Test NOW Care 09/22/24 01:37 Completed EKG (ED ONLY) *Do not use* NOW Care 09/22/24 01:[address] chest abdomen pelvis wo Stat Exams 09/22/24 01:[address] head/brain wo con Stat Exams 09/22/24 01:38 Completed EKG (ED Only) Stat Exams 09/22/24 01:39 Ordered Bilirubin,Direct Stat Lab 09/22/24 02:05 Completed CBC Stat Lab 09/22/24 02:05 Completed CMP [Comprehensive Metabolic Panel] Stat Lab 09/22/24 02:05 Completed Free T4 (Free Thyroxine) Stat Lab 09/22/24 02:05 Completed Lipase Stat Lab 09/22/24 02:05 Completed Magnesium Stat Lab 09/22/24 02:05 Completed TSH [Thyroid Stimulating Hormone] Stat Lab 09/22/24 02:05 Completed Troponin I Stat Lab 09/22/24 02:05 Completed UA, C/S IF [Urinalysis, C/S if Indicated] Stat Lab 09/22/24 03:32 Completed ALPRazoLAM [Xanax] Med 09/22/24 01:37 Discontinued 0.25 mg PO X1 ONE Ondansetron Odt [Zofran Odt] Med 09/22/24 01:37 Discontinued 4 mg PO X1 ONE Scopolamine [Transderm-Scop Patch] Med 09/22/24 01:37 Discontinued 1 mg TOP X1 ONE Vital Signs Vital signs: Vital Signs Temperature 98.1 F 09/22/24 01:01 Pulse Rate 66 09/22/24 01:01 Respiratory Rate 20 09/22/24 01:01 Blood Pressure 174/84 H 09/22/24 01:01 Pulse Oximetry (%) 95 09/22/24 01:01 Oxygen Delivery Method Room Air 09/22/24 01:01 Dizziness MDM Narrative MDM Narrative:: Scribe Attestation: I, Marizol Solis, am scribing for and in the presence of Dr. Garcia. Provider Notation: Although this document has been carefully reviewed, there may still be some phonetic and other typographical errors.? These errors are purely grammatical due to imperfections in the software program and should not be construed in any way to? compromise the substance of the patient's medical care during this visit. 74 y/o female with Hx of Seizure and HTN presents with dizziness and chest discomfort x 2 hours. Reports loss of balance when walking and feeling as if she is inebriated. Denies history of [place], but her endorses history of panic attacks. Patient reports allergy to Iodine and Codeine. No other complaints. Patient data External records reviewed:: [facility] previous records (Reviewed prior ED records from 02/04/24. Patient was seen for Strain of neck muscle.) Clinical information provided by:: patient Social determinants that could affect healthcare access:: none Patient has the following chronic illnesses:: Seizures, Hypertension, Hypothyroidism How is presenting disease/condition affected by chronic disease/condition?: exacerbated by Evaluation data The following diagnostics were reviewed and interpreted by me:: lab results, radiology exam(s) and EKG tracing(s) (My interpretation of the EKG is: Sinus rhythm (64 bpm) with nonspecific ST-T changes. Yemi Garcia MD) Lab and/or radiology exams considered but not ordered:: None Interpretation Summary: I reviewed all diagnostic tests: My interpretation of the EKG is: Sinus rhythm (64 bpm) with nonspecific ST-T changes. My review of the Head/Brain CT report is: NAD. My review of the Chest/Abdomen/Pelvis CT report is: NAD. Blood tests and urine tests unremarkable. Covid/Influenza: Negative. Medications / Prescriptions Medications or Prescriptions considered but not ordered:: None Medication administrations:: Medication Administration History Discontinued Medications Alprazolam (Alprazolam 0.25 Mg Tablet) 0.25 mg PO X1 ONE Stop: 09/22/24 01:38 Last Admin: 09/22/24 02:03 Dose: 0.25 mg Documented By: BD Ondansetron HCl (Ondansetron Odt 4 Mg Tabrap) 4 mg PO X1 ONE; Protocol Stop: 09/22/24 01:38 Last Admin: 09/22/24 02:04 Dose: 4 mg Documented By: BD Scopolamine (Scopolamine 1 Mg Tdsy) 1 mg TOP X1 ONE Stop: 09/22/24 01:38 Last Admin: 09/22/24 02:04 Dose: 1 mg Documented By: BD Xanax 0.25 mg, Zofran 4 mg, Transderm-Scop Patch 1 mg. Consultations Consultation(s) initiated? (list below): No Diagnosis Dizziness Differential Diagnosis: adverse reaction to drug, benign paroxysmal positional vertigo, orthostatic hypotension, vertebral basilar insufficiency, cerebrovascular accident, acute vestibular neuronitis and transient cerebral ischemia Most likely diagnosis given after review of the tests above:: Vertigo Admission Indicated Admission indicated?: not indicated Explain why admission is indicated or not indicated:: With significant improvement and no condition needing emergent intervention, there was no indication for admission. Admission Request Was there a request for admission?: No Disposition Plan Disposition Plan: Discharge Discharge Attestation Discharge Attestation: The patient and all family members were given an opportunity to ask questions and understood the discharge instructions. Discharge instructions specifically effects, indications for sooner follow up or return to the emergency department, and the expected course of current diagnosis. Patient condition: Stable Discharge Plan Plan Patient Disposition: HOME (Self Care) Prescriptions/Referrals Prescriptions/Med Rec: New ondansetron 4 mg tablet,disintegrating 4 mg PO TID PRN (Reason: nausea and vomiting) 30 Days Qty: 10 0RF alprazolam [Xanax] 0.25 mg tablet 0.25 mg PO BID PRN (Reason: anxiety) Qty: 20 0RF scopolamine base [Transderm-Scop] 1 mg over 3 days patch 3 day 1 mg topical .q72 hours PRN (Reason: dizziness or vertigo) Qty: 4 0RF No Action atenolol 25 MG tablet 50 mg PO DAILY Qty: 0 Phenytoin Sodium Extended * (DILANTIN *) 100 MG capsule 2 cap PO BID 3 Days Qty: 0 Patient Comments: FOR SEIZURE CONTROL pravastatin [Pravachol] 40 MG tablet 40 mg PO HS Qty: 0 omeprazole [Prilosec] 40 MG capsule,delayed release(DR/EC) 40 mg PO QDAY Qty: 0 Patient Comments: TO SUPPRESS GASTRIC SECRETIONS beclomethasone dipropionate [Qvar] 7.3 GM aerosol 1 puff Inhalation BID Qty: 0 Losartan Potassium * (COZAAR *) 50 MG tablet 50 mg PO QDAY Qty: 0 ibuprofen 600 mg tablet 600 mg PO Q8H PRN (Reason: pain) Qty: 20 0RF Referrals: Breana Cates [Primary Care Provider] - In 1 week Problem List Clinical Impression: Vertigo Patient/Caregiver Discharge Instructions Discharge Activity: activity as tolerated Education Materials: ED Vertigo, Unspecified Additional Instructions: Discharge instructions from Dr. Garcia: ? After extensive evaluation, there is no life-threatening condition.? Such as stroke or brain tumor or heart attack. -- Your symptoms are due to vertigo.? -- Use scopolamine patch as needed. --Xanax for anxiety. -- And Zofran for nausea/vomiting.? And increase oral fluid to prevent dehydration.? Maintain clear urine.? If dark or yellow, increase oral fluid. -- And do everything very slowly.? Including moving your head.? And when you sit up or stand up, wait a minute before you progress.? -- See your private doctor on 09/23/2024 for recheck and further care. Ask to review all test results and official radiology reports, to make sure you receive all necessary follow-ups and monitoring. If needed, ask to help you get more care not available here in the ER.? Such as MRI imaging of your brain, physical therapy, table tilt test, and referrals to see specialists (such as neurologist and ENT specialist). To make sure there is no serious underlying heart condition, ask to help you get more tests for your heart that cannot be done here in the ER. Such as Holter Monitor (cardiac monitoring at home from a day to even a month), heart stress test (on treadmill or with medication), echocardiogram (imaging of your heart structures), heart catherization (checking for blockages in your heart arteries), and a referral to see a Vacuum System Tester. -- Seek immediate medical care with worsening or with any concerns. Instrucciones de christopher del Dr. Garcia: ? Tras bonita evaluaci?n exhaustiva, no se campos detectado ninguna afecci?n potencialmente mortal, cara un derrame cerebral, un tumor cerebral o un infarto. -- Dominique s?ntomas se deben al v?rtigo. -- Use un parche de escopolamina seg?n sea necesario. -- Xanax para la ansiedad. -- Y Zofran para las n?useas y los v?mitos. Aumente la ingesta de l?quidos para prevenir la deshidrataci?n. Mantenga la orina jose armando. Si es oscura o amarilla, aumente la ingesta de l?quidos. -- Samara todo muy lentamente, incluyendo house mover supervisor la cinthia. Al incorporarse o levantarse, espere un minuto antes de que se produzcan cambios. -- Consulte a buchanan m?dico de cabecera el 23/09/2024 para bonita nueva revisi?n y recibir atenci?n adicional. Solicite la revisi?n de todos los resultados de las pruebas y los informes radiol?gicos oficiales para asegurarse de recibir todos los seguimientos y la monitorizaci?n necesarios. Si es necesario, solicite ayuda para obtener m?s atenci?n que no est? disponible en urgencias. Lewis resonancias magn?markus cerebrales, fisioterapia, prueba de inclinaci?n de la nicole y derivaciones a especialistas (cara neur?logos y otorrinolaring?logos). Para asegurarse de que no haya bonita afecci?n card?parminder subyacente grave, solicite ayuda para realizar m?s pruebas card?acas que no se pueden realizar en urgencias. Por ejemplo, un monitor Holter (monitorizaci?n card?parminder en casa desde un d?a hasta un mes), bonita prueba de esfuerzo card?aco (en cinta caminadora o con medicaci?n), un ecocardiograma (im?genes de las estructuras card?acas), un cateterismo card?aco (para detectar obstrucciones en las arterias card?acas) y bonita derivaci?n a un cardi?logo. -- Busque atenci?n m?dica inmediata si la condici?n empeora o tiene alguna inquietud. Print Language: Libyan Stand Alone Forms: Eva Award Info., Patient Portal Info Letter
--- NOTE | 2024-09-22 01:38 | XR_ITS ---
Examination: CT brain head without contrast. 2-D sagittal coronal reconstructions Date and time of exam:September 22, 2024, 0154 hours INDICATIONS: Onset dizziness episodes today. CTDI: vol (mGy):49.5. DLP: (mGycm):1000. Technique: Multiple CT axial sections of the brain have been obtained, 5 mm slice thickness. Contrast has not been administered. 2-D sagittal, coronal reconstructions have been obtained Low dose protocols were performed. One or more of the following dose reduction techniques were used; automated exposure control, adjustment of the mA and/or KV according to patient size, use of iterative reconstruction technique. Findings: No significant ventricular enlargement. Intra-axial or extra-axial hemorrhage density is not seen. No mass effect or midline shift Basal cisterns are not remarkable. Fourth ventricle is midline. Cranial vault intact. Impression: Negative for acute hemorrhage, mass effect or midline shift Unchanged cerebral calcifications compared with February 04, 2024, consider granulomas, residua of cysticercosis
--- NOTE | 2024-09-22 01:39 | XR_ITS ---
Examination: CT chest, without intravenous contrast. CT abdomen, without intravenous contrast. CT pelvis, without intravenous contrast. 2-D sagittal and coronal reconstructions. 3-D reconstructions. Date and time of exam:September 22, 2024, 0156 hours INDICATIONS: Onset chest pain abdominal pain today CTDI vol (mgy) 15.1 DLP (MGycm). 966. Technique: Multiple CT images, 3.0 mm slice thickness, obtained chest, abdomen, pelvis, with the high-resolution 64 slice scanner.. Sagittal and coronal 2-D reconstructions are obtained. 3-D reconstructions Low dose protocols were performed. One or more of the following dose reduction techniques were used; automated exposure control, adjustment of the mA and/or KV according to patient size, use of iterative reconstruction technique. Findings: No thoracic aortic aneurysmal dilatation Pulmonary artery segments are not enlarged. Mild prominence cardiac contour I do not visualize definite restrictive airways pattern No pneumonia or pulmonary edema 10 mm nodule lateral left breast image 92 No visualized liver splenic lesion Absent gallbladder No pancreatic mass Mild renal scar formation No hydronephrosis Aorta normal size No pericecal inflammatory changes Mildly distended urinary bladder Minimal urinary bladder wall thickening Small fat-containing umbilical hernia Prominent osteopenia IMPRESSION: No pneumonia or pulmonary edema. 2 mm nodule lateral left breast, recommend left breast sonography follow-up Suspicious for mild cystitis pattern
[2024-09-22] MEDS: ONDANSETRON ODT 4 MG TABRAP PO (02:04)
[2024-09-22] MEDS: SCOPOLAMINE 1 MG TDSY TOP (02:04)
[2024-09-22 02:17] LABS: Basophils # (Auto) 0.0 Thou/mm3 (0.0-0.2); Basophils % (Auto) 0 % (0-2.5); Eosinophils # (Auto) 0.2 Thou/mm3 (0.0-0.5); Eosinophils % (Auto) 2 % (0-10); Hematocrit 42.1 % (36.0-46.0); Hemoglobin 14.2 g/dL (12.0-16.0); Immature Granulocytes Auto 0.05 Thou/mm3 (0.00-0.00); Lymphocytes # (Auto) 3.5 Thou/mm3 (1.0-4.8); Lymphocytes % (Auto) 34 % (10-50); Mean Corpuscular HGB Conc 33.7 g/dl (31.0-37.0); Mean Corpuscular Hemoglobin 31.8 pg (25.0-35.0); Mean Corpuscular Volume 94 fL (80-100); Monocytes # (Auto) 0.8 Thou/mm3 (0.0-0.8); Monocytes % (Auto) 7 % (0-12); Neutrophils # (Auto) 6.0 Thou/mm3 (1.8-7.7); Neutrophils % (Auto) 57 % (37-80); Nucleated Red Blood Cell # 0.00 Thou/mm3 (0.00-0.00); Nucleated Red Blood Cell % 0 /100 WBC (0); Platelet Count 213 Thou/mm3 (140-440); RDW Standard Deviation 45.3 fL (36.4-46.3); Red Blood Count 4.46 Miln/mm3 (4.00-5.20); White Blood Count 10.5 Thou/mm3 (3.6-11.0)
[2024-09-22 02:35] LABS: Alanine Aminotransferase 17 U/L (10-49); Albumin, Serum 4.6 gm/dL (3.4-4.8); Albumin/Globulin Ratio 1.3 (1.2-2.2); Alkaline Phosphatase 88 U/L (46-116); Anion Gap 8 (7-16); Aspartate Amino Transferase 25 U/L (0-34); BUN/Creatinine Ratio 10 Ratio (12-20); Bilirubin,Direct < 0.1 mg/dL (0.0-0.3); Bilirubin,Total 0.4 mg/dL (0.3-1.2); Blood Urea Nitrogen 9 mg/dL (9-23); Calcium 9.5 mg/dL (8.3-10.6); Calcium (Corrected) 9.5 mg/dL (8.5-10.1); Carbon Dioxide 27.6 mMol/L (20.0-31.0); Chloride 108 mMol/L (98-107); Creatinine (Component) 0.9 mg/dL (0.6-1.3); Free T4 (Free Thyroxine) 1.21 ng/dL (0.89-1.76); Globulin 3.5 gm/dL (2.3-3.5); Glucose 107 mg/dL (74-106); Lipase 29 U/L (12-53); Magnesium 1.7 mg/dL (1.6-2.6); Osmolality,Calculated 285 (275-295); Potassium 4.0 mMol/L (3.4-5.1); Sodium 144 mMol/L (136-145); Thyroid Stimulating Hormone 2.46 uIU/mL (0.55-4.78); Total Protein 8.1 gm/dL (5.7-8.2); Troponin I < 0.020 ng/mL (0.0-0.045); eGFR > 60 See Note
--- NOTE | 2024-09-22 03:09 | PRELIM_ITS ---
CT scan of the head without intravenous contrast (axial sections with sagittal and coronal reformats) September 22, 2024 at 0154 hours Clinical history: Dizziness. No prior study is available for comparison. Findings: There is no evidence of intracranial hemorrhage, mass effect or midline shift. No definitive wedge-shaped acute infarcts are detected. There are multiple calcified nodules in bilateral cerebral hemispheres, which may represent calcified granulomas or related to cysticercosis. There are mild periventricular and subcortical white matter hypodensities, suggestive of chronic small vessel ischemia. There is mild volume loss. There is atheromatous calcification of the intracranial arteries. The calvarium is unremarkable. The mastoid air cells and the visualized paranasal sinuses are clear. Impression: No evidence of intracranial hemorrhage, mass effect or midline shift. Multiple calcified nodules in bilateral cerebral hemispheres, which may represent calcified granulomas or related to cysticercosis. Periventricular chronic small vessel ischemia and volume loss. Report Electronically Signed By: Osman Hargrove 09/22/2024 3:09:22 AM [EST]
--- NOTE | 2024-09-22 03:15 | PRELIM_ITS ---
CT scan of the chest, abdomen and pelvis without intravenous contrast (axial sections with sagittal and coronal reformats) September 22, 2024 0156 hours Clinical History: Chest/abdominal pain No prior study is available for comparison. Findings: The evaluation is limited due to the absence of intravenous contrast. Bibasilar dependent atelectasis is present. Lungs are heterogenous, likely small airway disease. No evidence of focal consolidation. There is no pleural effusion or pneumothorax. The thoracic aorta demonstrates atheromatous calcification without evidence of aneurysm. on this noncontrast study. No evide nce of mediastinal mass or lymphadenopathy. There is no pericardial effusion. The liver, spleen, pancreas and adrenals are unremarkable on this noncontrast study. The gallbladder is surgically absent. There is mild fullness of bilateral pelvicalyceal system. There is no renal or ureteric calculus. No evidence of bowel dilatation. The appendix is not visualized. There are occasional colonic diverticula without evidence of diverticulitis. The urinary bladder is moderately distended and demonstrates subtle wall thickening and perivesical fat stranding. There is no free fluid or free air.The abdominal aorta demonstrates atheromatous calcification without evidence of aneurysm. A small fat-containing umbilical hernia is present. Mild degenerative changes are identified in the spine. There is mild retrolisthesis of L4 on L5. Impression: Limited evaluation as described. Lungs are heterogenous, likely small airway disease. No focal consolidation or pleural effusion. No evidence to suggest bowel obstruction, free air or fluid collection. Findings suspicious for mild cystitis. Recommend clinical and laboratory correlation. Other findings as described above. Report Electronically Signed By: Osman Hargrove 09/22/2024 3:15:21 AM [EST]
[2024-09-22 03:39] LABS: Collection Type, Urine Clean Catch; RBC,Urine 0 /hpf (0-3); WBC,Urine 0 /hpf (0-5)
[2024-09-22 03:59] LABS: Bacteria,Urine Rare; Bilirubin,Urine Negative (Negative); Blood,Urine Negative (Negative); Clarity,Urine Clear (Clear/Hazy); Color,Urine Colorless (Lt Yel-Yel); Culture Indicated,Urine Not Indicated; Glucose, Urine Negative (Negative); Ketones,Urine Negative (Negative); Leukocyte Esterase,Urine Negative (Negative); Nitrite,Urine Negative (Negative); PH,Urine 7.0 (5.0-7.0); Protein,Urine Negative (Neg - Trace); Specific Gravity,Urine 1.007 (1.001-1.035); Squamous Epithelial Cell,Urine < 1 /hpf (0-5); Urobilinogen,Urine Negative mg/dL (0.0-1.0)
== END 2024-09-22 04:36 | disposition home or self-care (01) ==
PROVIDERS: Emergency Provider Emergency Medicine; PCP Physician Assistant
DX: R42 Dizziness and giddiness (principal); N63.20 Unspecified lump in the left breast, unspecified quadrant; G93.89 Other specified disorders of brain
CPT/HCPCS: 36415; 70450; 71250; 74176; 80053; 81001; 82248; 83690; 83735; 84439; 84443; 84484; 85025; 87400; 87811; 93005; 99284; Q0162; A9270

== ENCOUNTER → 2024-09-30 | Outpatient (CLI) | payer MEDICARE, MEDICAID, SELFPAY ==
--- NOTE | 2024-09-30 11:45 | XR_ITS ---
Examination: Screening digital mammography, bilateral Computer aided detection 3-D breast Tomosynthesis, bilateral Date and time of exam: September 30, 2024, 1109 hours Compared to mammograms dating to June 07, 2019 Indication: Screening Technique: Nonmagnified MLO, CC views of the breasts to been obtained, reconstructed from 3-D Tomosynthesis images. R2 computer aided detection program utilized for evaluation of suspicious masses and/or abnormal calcifications. 3-D Tomosynthesis images obtained. Findings: Scattered areas of fibroglandular density Stable nodules retroareolar region left breast Benign calcifications No interval suspicious masses Impression: BI-RADS category II: Benign Findings. Recommend 1 year follow-up mammogram.
== END | disposition home or self-care (01) ==
PROVIDERS: PCP Physician Assistant; Referring Provider Physician Assistant; Visit Provider Physician Assistant
DX: Z12.31 Encounter for screening mammogram for malignant neoplasm of breast (principal); R92.323 Mammographic fibroglandular density, bilateral breasts; R92.1 Mammographic calcification found on diagnostic imaging of breast
CPT/HCPCS: 77063; 77067

== ENCOUNTER → 2024-11-01 | Outpatient (CLI) | payer MEDICARE, MEDICAID, SELFPAY ==
[2024-11-01 11:38] LABS: Phenytoin (Dilantin) 13.3 mcg/mL
== END | disposition home or self-care (01) ==
PROVIDERS: PCP Psychiatry & Neurology Neurology; Referring Provider Psychiatry & Neurology Neurology; Visit Provider Psychiatry & Neurology Neurology
DX: G40.909 Epilepsy, unspecified, not intractable, without status epilepticus (principal)
CPT/HCPCS: 36415; 80185

== ENCOUNTER → 2024-11-06 | Outpatient (CLI) | payer MEDICARE, MEDICAID, SELFPAY ==
[2024-11-06 10:26] LABS: Basophils # (Auto) 0.0 Thou/mm3 (0.0-0.2); Basophils % (Auto) 0 % (0-2.5); Eosinophils # (Auto) 0.1 Thou/mm3 (0.0-0.5); Eosinophils % (Auto) 2 % (0-10); Hematocrit 41.6 % (36.0-46.0); Hemoglobin 13.7 g/dL (12.0-16.0); Immature Granulocytes Auto 0.02 Thou/mm3 (0.00-0.00); Lymphocytes # (Auto) 2.8 Thou/mm3 (1.0-4.8); Lymphocytes % (Auto) 41 % (10-50); Mean Corpuscular HGB Conc 32.9 g/dl (31.0-37.0); Mean Corpuscular Hemoglobin 31.9 pg (25.0-35.0); Mean Corpuscular Volume 97 fL (80-100); Monocytes # (Auto) 0.5 Thou/mm3 (0.0-0.8); Monocytes % (Auto) 7 % (0-12); Neutrophils # (Auto) 3.4 Thou/mm3 (1.8-7.7); Neutrophils % (Auto) 49 % (37-80); Nucleated Red Blood Cell # 0.00 Thou/mm3 (0.00-0.00); Nucleated Red Blood Cell % 0 /100 WBC (0); Platelet Count 180 Thou/mm3 (140-440); RDW Standard Deviation 45.0 fL (36.4-46.3); Red Blood Count 4.29 Miln/mm3 (4.00-5.20); White Blood Count 6.8 Thou/mm3 (3.6-11.0)
[2024-11-06 10:41] LABS: Glucose Estimated Average 117 mg/dL (80-131); Hemoglobin A1C 5.7 % Hgb (4.8-6.0)
[2024-11-06 10:54] LABS: Alanine Aminotransferase 14 U/L (10-49); Albumin, Serum 4.3 gm/dL (3.4-4.8); Albumin/Globulin Ratio 1.5 (1.2-2.2); Alkaline Phosphatase 79 U/L (46-116); Anion Gap 11 (7-16); Aspartate Amino Transferase 19 U/L (0-34); BUN/Creatinine Ratio 14 Ratio (12-20); Bilirubin,Total 0.4 mg/dL (0.3-1.2); Blood Urea Nitrogen 13 mg/dL (9-23); Calcium 10.1 mg/dL (8.3-10.6); Calcium (Corrected) 10.1 mg/dL (8.5-10.1); Carbon Dioxide 25.8 mMol/L (20.0-31.0); Cardiac Risk Estimate 3.2 RATIO (3.7-5.6); Chloride 107 mMol/L (98-107); Cholesterol 171 mg/dL (132-200); Creatinine (Component) 0.9 mg/dL (0.6-1.3); Globulin 2.8 gm/dL (2.3-3.5); Glucose 115 mg/dL (74-106); HDL Cholesterol 54 mg/dL (40-60); LDL Cholesterol,Calculated 93 mg/dL (0-130); Osmolality,Calculated 287 (275-295); Potassium 4.4 mMol/L (3.4-5.1); Sodium 144 mMol/L (136-145); Thyroid Stimulating Hormone 1.63 uIU/mL (0.55-4.78); Total Protein 7.1 gm/dL (5.7-8.2); Triglycerides 118 mg/dL (30-150); eGFR > 60 See Note
[2024-11-06 10:57] LABS: Collection Type, Urine Clean Catch
[2024-11-06 11:45] LABS: Bacteria,Urine 2+; Bilirubin,Urine Negative (Negative); Blood,Urine 1+ (Negative); Color,Urine Lt-Yellow (Lt Yel-Yel); Glucose, Urine Negative (Negative); Ketones,Urine Negative (Negative); Leukocyte Esterase,Urine Positive (Negative); Nitrite,Urine Negative (Negative); PH,Urine 6.0 (5.0-7.0); Protein,Urine Trace (Neg - Trace); RBC,Urine 7 /hpf (0-3); Specific Gravity,Urine 1.016 (1.001-1.035); Squamous Epithelial Cell,Urine 2 /hpf (0-5); Urobilinogen,Urine Negative mg/dL (0.0-1.0); WBC,Urine 695 /hpf (0-5)
[2024-11-06 11:48] LABS: Clarity,Urine Hazy (Clear/Hazy); Culture Indicated,Urine Yes
[2024-11-06 12:03] LABS: Creatinine MALB Rnd Ur 79 mg/dL (30-125); Microalbumin Creat Ratio 75 mg/gCrea (<30); Microalbumin, Random Urine 59 mg/L (0-300)
== END | disposition home or self-care (01) ==
LOC: COPL 09:51
PROVIDERS: PCP Physician Assistant; Referring Provider Physician Assistant; Visit Provider Physician Assistant
DX: I10 Essential (primary) hypertension (principal); E78.5 Hyperlipidemia, unspecified; R73.9 Hyperglycemia, unspecified; R53.83 Other fatigue
CPT/HCPCS: 36415; 80053; 80061; 81001; 82043; 82570; 83036; 84443; 85025; 87077; 87086; 87186

== ENCOUNTER → 2024-11-07 | Outpatient (CLI) | payer MEDICARE, MEDICAID, SELFPAY ==
[2024-11-12 06:54] LABS: Fecal Globin Result NOT DETECTED (NOT DETECTED)
== END | disposition home or self-care (01) ==
LOC: SLDO 13:34
PROVIDERS: Referring Provider Physician Assistant; Visit Provider Physician Assistant
DX: I10 Essential (primary) hypertension (principal)
CPT/HCPCS: 82274; G0328